=== PATIENT | female | born 1995 | race Caucasian/White ===

== ENCOUNTER 2019-11-22 21:53 | Emergency (ER) | payer SELFPAY ==
[2019-11-22 22:01] VITALS: BP 127/78; PULSE 90; RESP 17; TEMP 36.4; O2SAT 98; BMI 29.0
--- NOTE | 2019-11-22 22:33 | US_ITS ---
WS: [id number] Complete ABDOMINAL ULTRASOUND HISTORY: Abdominal Pain COMPARISON: None available. Liver: 12.6 cm in length. Liver is normal size and echogenicity with no mass or intrahepatic dilatati on. Gallbladder: Normally distended gallbladder with numerous mobile stones in the lumen. No pericholecys tic fluid or gallbladder wall thickening. Gallbladder wall thickness: 0.3 cm. Pancreas: Normal size and echogenicity. CBD: 0.4 cm. Right kidney: 10.5 cm x 4.9 cm x 4.5 cm. No mass, cortical thickening or hydronephrosis. Left kidney: 11.1 cm x 5.1 cm x 5.4 cm. No mass, cortical thickening or hydronephrosis. Spleen: Normal size and echogenicity. Abdominal aorta and IVC are within normal limits. No ascites. US/US abdomen complete* [id number] IMPRESSION: 1. Cholelithiasis with gallbladder wall thickness top normal. No pericholecyst ic fluid. 2. No biliary obstruction.
--- NOTE | 2019-11-22 22:44 | ED_ITS ---
HPI - Abdominal Pain General: Chief Complaint: Abdominal Pain Stated Complaint: upper abd pain Time Seen by Provider: 11/22/19 22:29 History of Present Illness: HPI narrative: Tereza is a 24-year-old female who comes in complaining of right upper quadrant pain for the past 2 hours. She has associated nausea and vomiting with this. Pain does not radiate. It describes a sharp stabbing pain. She is not had anything similar in the past or recently. Earlier in the day the patient had lower abdominal pain when she urinated and was seen at urgent care and diagnosed with a UTI. She denies any fevers, chills, flank pain or lower abdominal pain at the present time. Associated Symptoms: Reports nausea and vomiting; Denies chills, coffee ground emesis, constipation, GI cramping, diarrhea, dysuria, fever(s), hematochezia, hematuria, hematemesis, melena and syncope Review of Systems General: Reports: other (negative unless marked) Const: Denies: fever, chills, body aches, fatigue, malaise or diaphoresis Eyes: Denies: change in vision or blurry vision ENMT: Denies: throat pain, painful swallowing, hoarseness, ear pain, ear discharge, Change in hearing or nasal discharge Card: Denies: chest pain, palpitations, irregular heart rhythm, syncope, pre-syncope, shortness of breath on exertion or shortness of breath when lying down Resp: Denies: shortness of breath, productive cough, non-productive cough, wheezing, coughing up blood or chest congestion GI: Reports: abdominal pain, nausea and vomiting; Denies: vomiting blood, coffee grounds in vomit, diarrhea, constipation, cramping, blood in stool or black tarry stool : Denies: flank pain, painful urination, urinary frequency, urinary urgency, decreased urine ouput, urinary incontinence or blood in urine Musc: Denies: neck pain, back pain, extremity pain, extremity swelling, joint pain, joint swelling, joint warmth or joint stiffness Skin/Breast: Denies: rash, skin tenderness or yellow skin Neuro: Denies: headache, numbness in extremities, weakness in extremities, changes in sensation, lack of coordination, difficulty walking, dizziness, vertigo or confusion Endo: Denies: excessive thirst, tired all the time, cold intolerance, excessive sweating, flushing or hot flashes Hiram/Lymph: Denies: easy bruising, easy bleeding, petechiae or enlarged lymph nodes All/Imm: Denies: hives, throat swelling, tongue swelling, facial swelling or acute wheezing PFSH ED PFSH: Medical History No pertinent past medical history Surgical History No history of previous surgery Social History Smoking and tobacco status: current every day smoker Physical Exam Const: COMMON NORMALS: no apparent distress, oriented x3, no limitations, healthy appearing and well nourished EXAM LIMITATIONS: no altered mental status GENERAL APPEARANCE: cooperative, well kempt and well developed ORIENTATION/CONSCIOUSNESS: Yes awake HENMT: COMMON NORMALS: normocephalic, head/scalp atraumatic, hearing grossly normal bilaterally, external ears normal, EAC's normal, external nose normal and moist oral mucous membranes HEAD & SCALP: normal to inspection, normocephalic and atraumatic FACE & SINUS: normal facial exam and face symmetric NOSE: external nose normal and nares normal EXTERNAL EAR: Yes external ears normal EXTERNAL AUDITORY CANAL: EAC's normal MOUTH: oral and palatal mucosa normal and tongue normal Eye: COMMON NORMALS: PERRL, EOMs intact bilaterally, conjunctivae normal and no scleral icterus GENERAL EYE: normal appearance of both eyes and normal light reflex CONJUNCTIVA: Yes conjunctivae normal SCLERA: sclerae normal CORNEA: Yes corneas normal PUPIL: Yes PERRL DIRECT OPHTHALMOSCOPY: Yes normal light reflex Neck/C-Spine: COMMON NORMALS: full ROM, no lymphadenopathy, supple, no meningeal signs and no JVD GENERAL: Yes normal visual inspection and Yes trachea midline CERVICAL SPINE: Yes cervical ROM normal Chest: COMMONS NORMALS: inspection of chest normal and palpation of chest normal Resp: COMMON NORMALS: normal respiratory effort, no retractions, no use of accessory muscles and clear to auscultation bilaterally EFFORT & INSPECTION: Yes able to speak in complete sentences AUSCULTATION: clear to auscultation bilaterally Cardio: COMMON NORMALS: no JVD, regular rate, regular rhythm, S1 normal heart sound, S2 normal heart sound, no gallops, no clicks, no murmurs and no rub JUGULAR VENOUS DISTENTION: no JVD RATE: regular rate RHYTHM: regular rhythm HEART SOUNDS: S1 normal and S2 normal GI: COMMON NORMALS: soft to palpation, no hepatosplenomegaly and no masses PALPATION: Yes soft, Yes tender Details: RUQ and Yes no hepatosplenomegaly : COMMON NORMALS: Yes no CVA tenderness BLADDER/KIDNEY EXAM: Yes no CVA tenderness Back/Pelvis: COMMON NORMALS: no CVA tenderness, thoracic and lumbar spine normal to inspection, no thoracic nor lumbar tenderness and thoraco-lumbar ROM normal Extremity: COMMON NORMALS: normal to inspection, full ROM, normal capillary refill, no joint enlargement, no clubbing, cyanosis or edema and no calf tenderness Neuro: COMMON NORMALS: oriented x3, CN's II-XII intact bilaterally, moves all extremities, no focal motor deficits and no sensory deficits noted MENINGEAL SIGNS: Yes no meningeal signs Psych: COMMON NORMALS: mental status grossly normal, thought process normal, cooperative, affect normal, speech normal and activity/motor behavior normal APPEARANCE: Yes well kempt SPEECH: Yes normal speech THOUGHT PROCESS: normal thought process Skin: COMMON NORMALS: no rashes or lesions noted, skin turgor normal, no ja undice, no petechiae and no mottling GENERAL SKIN EXAM: no rashes or lesions noted and turgor normal Course Vital Signs: Vital signs: Vital Signs Temperature 97.5 F L 11/22/19 22:01 Pulse Rate 84 11/23/19 01:20 Respiratory Rate 18 11/23/19 01:20 Blood Pressure 113/61 11/23/19 01:20 Pulse Oximetry 98 11/23/19 01:20 MDM - Abdominal Pain MDM Narrative: Medical decision making narrative: Tereza is a nice 24-year-old female who comes in complaining of right upper quadrant abdominal pain. Her pain subsided on its own here before receiving pain medication. She is overall feeling much better. She would like referred to a surgeon she understands this may recur. She otherwise denies having any complaints or concerns at this time. Lab Data: Attestation: I reviewed the patient's lab results. Labs: Lab Results 11/22/19 11/22/19 11/22/19 Range/Units 22:24 23:21 23:21 WBC 13.2 H (4.0-10.0) 10^3/ uL RBC 4.05 L (4.1-5.3) 10^6/u L Hgb 12.2 (11.5-15.3) g/dL Hct 36.4 L (37.0-47.0) % MCV 89.9 (81-99) fL MCH 30.1 (28.0-34.0) pg MCHC 33.5 (30.0-36.0) g/dL RDW 11.9 L (12.1-15.1) % Plt Count 233 (130-400) 10^3/c mm MPV 10.8 H (7.4-10.4) fL Neut % (Auto) 67.4 % Lymph % (Auto) 24.3 % [place] % (Auto) 6.1 % Eos % (Auto) 1.4 % Baso % (Auto) 0.4 % Neut # (Auto) 8.9 H (1.8-7.7) 10^3/u L Lymph # (Auto) 3.2 (0.8-4.8) 10^3/u L [place] # (Auto) 0.8 (0.2-0.9) 10^3/u L Eos # (Auto) 0.2 (0.0-0.8) 10^3/u L Baso # (Auto) 0.1 (0.0-0.1) 10^3/u L Nucleated RBC % (a uto) 0 % Nucleated RBCs # 0.0 /100WBC Sodium 136 (136-145) mmol/L Potassium 3.4 L (3.5-5.1) mmol/L Chloride 101 (98-107) mmol/L Carbon Dioxide 26 (22-29) mmol/L Anion Gap 12.4 (5-19) BUN 8 (6-20) mg/dL Creatinine 0.7 (0.5-0.9) mg/dL GFR Calculation 103.7 (90-130) mL/min Glucose 99 (65-115) mg/dL Calculated Osmolal ity 278 L (285-295) mOsm/k g Calcium 9.3 (8.5-10.5) mg/dL Magnesium (1.7-2.3) mg/dL Total Bilirubin 0.2 (0.15-1.2) mg/dL AST 11 (0-32) U/L ALT 6 (0-33) U/L Alkaline Phosphata se 69 (35-105) IU/L Total Protein 7.1 (6.6-8.7) g/dL Albumin 4.3 (3.5-5.2) g/dL Globulin 2.8 (1.3-4.6) g/dL Lipase 24 (13-60) U/L HCG, Qual (Negative) Urine Color Yellow (Yellow) Urine Appearance Clear (CLEAR) Urine pH 6 (5-7) Ur Specific Gravit y 1.020 (1.005-1.030) Urine Protein Neg (Negative) Urine Glucose (UA) Norm (Normal) Urine Ketones Negative (Negative) Urine Blood Neg (Negative) Urine Nitrate Negative (Negative) Urine Bilirubin Neg (NEGATIVE) Urine Urobilinogen Norm (Negative) mg/dL Ur Leukocyte Brigette ase Negative (Negative) Urine RBC 0-4 H (0-2) /hpf Urine WBC 0-4 H (0-5) /hpf Ur Squamous Epith Cells 0-4 H (0-5) Urine Bacteria 1+ H (NONE) 11/22/19 11/22/19 Range/Units 23:21 23:21 WBC (4.0-10.0) 10^3/ uL RBC (4.1-5.3) 10^6/u L Hgb (11.5-15.3) g/dL Hct (37.0-47.0) % MCV (81-99) fL MCH (28.0-34.0) pg MCHC (30.0-36.0) g/dL RDW (12.1-15.1) % Plt Count (130-400) 10^3/c mm MPV (7.4-10.4) fL Neut % (Auto) % Lymph % (Auto) % [place] % (Auto) % Eos % (Auto) % Baso % (Auto) % Neut # (Auto) (1.8-7.7) 10^3/u L Lymph # (Auto) (0.8-4.8) 10^3/u L [place] # (Auto) (0.2-0.9) 10^3/u L Eos # (Auto) (0.0-0.8) 10^3/u L Baso # (Auto) (0.0-0.1) 10^3/u L Nucleated RBC % (a uto) % Nucleated RBCs # /100WBC Sodium (136-145) mmol/L Potassium (3.5-5.1) mmol/L Chloride (98-107) mmol/L Carbon Dioxide (22-29) mmol/L Anion Gap (5-19) BUN (6-20) mg/dL Creatinine (0.5-0.9) mg/dL GFR Calculation (90-130) mL/min Glucose (65-115) mg/dL Calculated Osmolal ity (285-295) mOsm/k g Calcium (8.5-10.5) mg/dL Magnesium 2.1 (1.7-2.3) mg/dL Total Bilirubin (0.15-1.2) mg/dL AST (0-32) U/L ALT (0-33) U/L Alkaline Phosphata se (35-105) IU/L Total Protein (6.6-8.7) g/dL Albumin (3.5-5.2) g/dL Globulin (1.3-4.6) g/dL Lipase (13-60) U/L HCG, Qual Negative (Negative) Urine Color (Yellow) Urine Appearance (CLEAR) Urine pH (5-7) Ur Specific Gravit y (1.005-1.030) Urine Protein (Negative) Urine Glucose (UA) (Normal) Urine Ketones (Negative) Urine Blood (Negative) Urine Nitrate (Negative) Urine Bilirubin (NEGATIVE) Urine Urobilinogen (Negative) mg/dL Ur Leukocyte Brigette ase (Negative) Urine RBC (0-2) /hpf Urine WBC (0-5) /hpf Ur Squamous Epith Cells (0-5) Urine Bacteria (NONE) Discharge Plan Discharge Patient Disposition: Home, Self-Care Clinical Impression: Biliary colic Condition: Stable Prescriptions: No Action sulfamethoxazole-trimethoprim [Bactrim DS] 800-160 mg tablet 1 tab PO BID Qty: 6 RF: 0 Discharge Orders: Discharge Order (Routine); Ordered 11/22/19 Ordered By: Gayla Fishman Referrals: Matthew Samuels MD [Primary Care Provider] - Carlos Robins MD [Physician] - 1-3 days Discharge Diet: Advance as tolerated Discharge Activity: Increase activity as tolerated Patient Instructions: Biliary Colic (ED), Abdominal Pain (ED) Activity Restrictions/Additional Instructions: Please return to the ER immediately for any of the signs or symptoms listed on your discharge instruction sheets, worsening/changing of your symptoms, you are not getting better as quickly as expected, or for ANY other cause or concerns. Discharge Date/Time: 11/23/19 01:20 Coding Level of Care Code ED Construction Carpenter for Shalini Fwd Exam Comprehensive
[2019-11-22 22:47] LABS: Bacteria Urine 1+; Bilirubin Urine Neg (NEGATIVE); Blood Urine Neg (Negative); Glucose Urine UA Norm (Normal); Ketones Urine Negative (Negative); Leukocyte Esterase Urine Negative (Negative); Nitrate Urine Negative (Negative); Protein Urine Neg (Negative); RBC Urine 0-4 /hpf (0-2); Squamous Epithelial Cell Urine 0-4 (0-5); Urine Appearance Clear (CLEAR); Urine Color Yellow (Yellow); Urobilinogen Urine Norm (Negative); WBC Urine 0-4 /hpf (0-5); pH Urine 6 (5-7)
[2019-11-22] MEDS: sodium chloride 0.9% 1,000 ML 999 ML IV (23:12)
[2019-11-22] MEDS: ondansetron 2 mg/ML SDV 2 mL 4 MG IVP (23:18)
[2019-11-22 23:19] VITALS: RESP 18; O2SAT 98
[2019-11-22] MEDS: morphine 4 mg/mL SDV 1 mL IVP (23:19)
[2019-11-22 23:29] LABS: Basophils # 0.1 10^3/uL (0.0-0.1); Basophils % 0.4 %; Eosinophils # 0.2 10^3/uL (0.0-0.8); Eosinophils % 1.4 %; Hematocrit 36.4 % (37.0-47.0); Hemoglobin 12.2 g/dL (11.5-15.3); Lymphocytes # 3.2 10^3/uL (0.8-4.8); Lymphocytes % 24.3 %; Mean Corpuscular HGB Conc 33.5 g/dL (30.0-36.0); Mean Corpuscular Hemoglobin 30.1 pg (28.0-34.0); Mean Corpuscular Volume 89.9 fL (81-99); Mean Platelet Volume 10.8 fL (7.4-10.4); Monocytes # 0.8 10^3/uL (0.2-0.9); Monocytes % 6.1 %; Neutrophils # 8.9 10^3/uL (1.8-7.7); Neutrophils % 67.4 %; Nucleated Red Blood Cells % 0 %; Platelet Count 233 10^3/cmm (130-400); Red Blood Count 4.05 10^6/uL (4.1-5.3); Red Cell Distribution Width 11.9 % (12.1-15.1); White Blood Count 13.2 10^3/uL (4.0-10.0)
[2019-11-22 23:43] LABS: Alanine Aminotransferase 6 U/L (0-33); Albumin Level 4.3 g/dL (3.5-5.2); Alkaline Phosphatase 69 IU/L (35-105); Anion Gap 12.4 (5-19); Aspartate Amino Transferase 11 U/L (0-32); Blood Urea Nitrogen 8 mg/dL (6-20); Calcium 9.3 mg/dL (8.5-10.5); Carbon Dioxide 26 mmol/L (22-29); Chloride 101 mmol/L (98-107); Creatinine Clr Calc Pharmacy 134.6498; Globulin 2.8 g/dL (1.3-4.6); Glomerular Filtration Rate 103.7 mL/min (90-130); Glucose 99 mg/dL (65-115); Lipase 24 U/L (13-60); Osmolality Calculated 278 mOsm/kg (285-295); Potassium 3.4 mmol/L (3.5-5.1); Sodium 136 mmol/L (136-145); Total Bilirubin 0.2 mg/dL (0.15-1.2); Total Protein 7.1 g/dL (6.6-8.7)
[2019-11-22 23:45] LABS: HCG, Serum Qual Negative (Negative)
[2019-11-23 01:08] LABS: Magnesium 2.1 mg/dL (1.7-2.3)
[2019-11-23 01:20] VITALS: BP 113/61; PULSE 84; RESP 18; O2SAT 98
--- NOTE | 2019-11-23 10:59 | DCPLANNER ---
Addendum entered by Jennifer Calzada 11/23/19 13:28: surgical territory manager did call patient again, spoke with patient, gave her the appointment information. surgical territory manager will also mail patient the financial planning adviser application for the hospital. Original Note: surgical territory manager had message to schedule a follow up appointment for patient with general surgery. surgical territory manager called [facility], spoke with Regina. surgical territory manager gave clinic patients information, a follow up appointment was scheduled for Wednesday, November 27, 2019 at 2:[address] Robins. surgical territory manager called patient with appointment information, unable to speak with patient at this time, a voicemail was left for patient to return case consultant phone call.
--- NOTE | 2019-12-07 16:01 | DCPLANNER ---
Patient did attend appointment scheduled for 11.27.19 with [facility].
== END 2019-11-23 01:20 | disposition home or self-care (01) ==
PROVIDERS: Emergency Provider Emergency Medicine; Family Provider Family Medicine; PCP Family Medicine
DX: K80.50 Calculus of bile duct without cholangitis or cholecystitis without obstruction (principal); F17.210 Nicotine dependence, cigarettes, uncomplicated
CPT/HCPCS: 12345; 76700; 80053; 81000; 81001; 83690; 83735; 84703; 85025; 96361; 96374; 96375; 99282; 99283; J2270; J2405; J7030

== ENCOUNTER 2019-11-29 11:53 | Day surgery (SDC) | payer SELFPAY ==
[2019-11-28 12:51] VITALS: BMI 28.7
[2019-11-29] VITALS (8 sets, daily range): BP systolic 123–142; BP diastolic 70–79; PULSE 61–86; RESP 13–20; TEMP 36.9–37.6; O2SAT 96–99
--- NOTE | 2019-11-29 12:13 | W.PM.OPSUD ---
Surgery/Procedure H&P Update DATE OF PROCEDURE: November 29, 2019 DATE H&P PERFORMED: 11/27/19 H&P UPDATE INFORMATION: I have reviewed H&P completed within last 30 days, I have examined patient prior to procedure and No changes to prior documentation PLANNED PROCEDURE: Operation Date: 11/29/19 13:30 Proposed Procedures p Laparoscopic Cholecystectomy 45528/K80.20(Not Applicable) - Carlos Robins MD
--- NOTE | 2019-11-29 13:02 | ANES.PREANE2 ---
Pre-Anesthetic Assessment Pre-Anesthetic Assessment: Height/Weight: Height 1.68 m Weight 80.739 kg Temp Pulse Resp BP Pulse Ox 98.5 F 75 18 131/73 99 11/29/19 12:25 11/29/19 12:25 11/29/19 12:25 11/29/19 12:25 11/29/19 12:25 Preop Diagnosis: Cholelithiasis Proposed Procedure: Operation Date: 11/29/19 13:30 Proposed Procedures p Laparoscopic Cholecystectomy 52060/K80.20(Not Applicable) - Carlos Robins MD Familial anesthetic complications: None Was Beta Isabell taken within 24 hours: N/A Last intake: Intake Last Liquid Date 11/28/19 Last Liquid Time 20:30 Last Solid Date 11/28/19 Last Solid Time 20:00 Social: Social History: Tobacco and No alcohol Packs per day: 1 ppd Exam: Pre-Anes Outpt Exam: alert, oriented x 3, clear to auscultation bilaterally and regular rate & rhythm Airway: Cervical ROM: WNL MP: 2 Additional comments: no teeth on top - chipped teeth on bottom Pulmonary: Pulmonary: None reported CV/HEM: CV/HEM: None reported : : None reported Comments: uti Hepatic: Hepatic: None reported GI: GI: None reported Metabolic: Metabolic: None reported Musc/skel: Musc/skel: None reported Neuropsych: Neuropsych: None reported Anesthetic Plan: ASA status: 1 Anesthesia: General Risk of > 500 ml blood loss (7ml/kg in children): No PFSH Anesthesia PFSH: Medical History (Updated 11/29/19 @ 12:34 by Carlos Robins MD) No pertinent past medical history Surgical History (Updated 11/29/19 @ 12:34 by Carlos Robins MD) No history of previous surgery Status post laparoscopic cholecystectomy (11/29/19) Social History Smoking and tobacco status: current every day smoker Data Anesthesia Cardiac Studies: No Data to Display
[2019-11-29 13:34] LABS: OR HCG Qualitative Urine Negative (Negative)
[2019-11-29] MEDS: sodium chloride 0.9% 1,000 ML 30 ML IV (14:23)
--- NOTE | 2019-11-29 15:08 | P.OP_ITS ---
Operative Report Date of procedure: November 29, 2019 Pre-op Diagnosis: Cholelithiasis Post-op diagnosis: same Procedure Done: Laparoscopic cholecystectomy Specimens removed/disposition: Gallbladder Surgeon: Carlos Robins Anesthesia: General Condition: stable Disposition: PACU Procedure: The patient was taken to the operating room and was intubated under general anesthesia. After the antibiotic had been administered, the abdomen was prepped and draped in a sterile manner. Using a #15 blade, a 1 centimeter infraumbilical curvilinear incision was made and using an open Sergey technique the peritoneal cavity was entered. A 10 millimeter port was placed and 15 millimeters of pneumoperitoneum was created. A 10 millimeter, 30 degrees scope was then introduced. Three 5 millimeter ports were placed in the epigastric, midclavicular and the anterior axillary line two fingerbreadths below the costal margin on the right side under the direct visualization. Ratcheted forceps were introduced into the lateral most port and was used to retract the fundus of the gallbladder cephalad and using forceps the infundibulum of the gallbladder was retracted laterally. Using L-hook cautery the peritoneum overlying the Calot's triangle was opened medially and laterally until the cystic duct and the cystic artery were skeletonized. Dissection was carried along the body of the gallbladder and after ensuring critical view of safety, 4 clips applied on the cystic duct and 3 clips applied on the cystic artery and cut leaving, 3 clips on the remaining portion of the duct and 2 clips on the remaining portion of the artery. The rest of the gallbladder was dissected off the liver using L-hook cautery. There was no bleeding or bile leaking noted from the gallbladder fossa and the clips appeared to be in place. An EndoCatch bag was introduced to remov e the gallbladder. All the ports were removed under direct visualization and there was no bleeding noted from the port sites. The fascia of the umbilicus was closed using [id number] 0 Vicryl sutures and the subcutaneous tissue was approximated using 3-0 Vicryl sutures. The skin at all four ports were closed using 4-0 Monocryl and Dermabond. A total of 10 millimeters of 0.5% Marcaine was infiltrated around the port sites. The patient was stable throughout the procedure.
[2019-11-29] MEDS: fentaNYL 50 mcg/mL INJ 2mL 100 MCG IVP (15:23)
[2019-11-29] MEDS: HYDROcodone-acetaminophen 5-325 mg Tablet 1 TAB PO (16:06)
== END 2019-11-29 16:40 | disposition home or self-care (01) ==
PROVIDERS: Anesthesiology; Family Provider Family Medicine; PCP Family Medicine; Visit Provider Surgery
PROC: 0FT44ZZ Resection of Gallbladder, Percutaneous Endoscopic Approach (ICD-10-PCS; CPT 47562; principal; 2019-11-29 13:30)
DX: K80.10 Calculus of gallbladder with chronic cholecystitis without obstruction (principal); F17.210 Nicotine dependence, cigarettes, uncomplicated
CPT/HCPCS: 47562; 12345; 84703; 88304; J0131; J0690; J2001; J2250; J2405; J2704; J3010; J3490; J7030

== ENCOUNTER → 2020-07-15 10:21 | Outpatient (BNVA) | payer MEDICAID, SELFPAY | PROVIDERS: Family Provider Family Medicine; PCP Family Medicine; Visit Provider Emergency Medicine | DX: N99.89 Other postprocedural complications and disorders of genitourinary system (principal); N39.0 Urinary tract infection, site not specified | CPT/HCPCS: 81000 ==

== ENCOUNTER → 2021-12-31 09:42 | Outpatient (BNVA) | payer MEDICAID, SELFPAY | PROVIDERS: Family Provider Family Medicine; PCP Family Medicine; Visit Provider Obstetrics & Gynecology | DX: R87.612 Low grade squamous intraepithelial lesion on cytologic smear of cervix (LGSIL) (principal); R87.619 Unspecified abnormal cytological findings in specimens from cervix uteri | CPT/HCPCS: 81025; 88305 ==

== ENCOUNTER → 2022-08-05 11:13 | Outpatient (BNVA) | payer MEDICAID, SELFPAY | PROVIDERS: Family Provider Family Medicine; PCP Family Medicine; Visit Provider Obstetrics & Gynecology | DX: Z00.00 Encounter for general adult medical examination without abnormal findings (principal) | CPT/HCPCS: 84702 ==

== ENCOUNTER 2022-09-08 07:03 | Outpatient (CLI) | payer MEDICAID, SELFPAY ==
--- NOTE | 2022-09-08 | US_ITS ---
WS: [id number] EARLY OBSTETRICAL ULTRASOUND (<14 WEEKS). HISTORY: UNSURE OF LMP COMPARISON: None available. Single intrauterine gestational sac is identified. Cardiac activity at 164 BPM. Delight-rump length ronna sures 3.5 cm which corresponds to a gestation of 10w3d. Normal-appearing yolk sac and amnion demonstr ated. No subchorionic hemorrhage. No free fluid. Normal size ovaries with no mass. US/US OB <= 14 weeks fetus [id number] IMPRESSION: 1. Single intrauterine gestation of 10 weeks 3 days with an EDC of 04/03/2023. 2. Normal cardiac activity.
== END 2022-09-08 07:04 | disposition home or self-care (01) ==
LOC: RAD 07:05
PROVIDERS: PCP Family Medicine; Visit Provider Family Medicine
DX: Z36.87 Encounter for antenatal screening for uncertain dates (principal); Z3A.10 10 weeks gestation of pregnancy
CPT/HCPCS: 76801

== ENCOUNTER 2023-03-20 00:23 | Inpatient (IN) | payer MEDICAID, SELFPAY ==
[2023-03-19] VITALS (9 sets, daily range): BP systolic 107–138; BP diastolic 70–82; PULSE 75–85; RESP 15; TEMP 36.1; BMI 36.1
[2023-03-19 23:43] LABS: Nitrazine Paper, PH Negative
[2023-03-20] VITALS (27 sets, daily range): BP systolic 113–160; BP diastolic 57–101; PULSE 72–122; RESP 16–17; TEMP 36.8–37.1; O2SAT 96–98
[2023-03-20] MEDS: lactated ringers 1,000 ML 999 ML IV (00:46)
[2023-03-20 01:03] LABS: Basophils % 0.1 %; Eosinophils # 0.1 10^3/uL (0.0-0.8); Eosinophils % 0.5 %; Hematocrit 33.6 % (36-47); Lymphocytes # 2.2 10^3/uL (0.8-4.8); Lymphocytes % 16.1 %; Mean Corpuscular HGB Conc 33.9 g/dL (30-55); Mean Corpuscular Hemoglobin 29.8 pg (27-33); Mean Corpuscular Volume 87.7 fl (85-98); Mean Platelet Volume 11.5 fL (7.4-10.4); Monocytes # 0.9 10^3/uL (0.2-0.9); Monocytes % 6.3 %; Neutrophils # 10.46 10^3/uL (1.8-7.7); Neutrophils % 76.7 %; Nucleated Red Blood Cells % 0 %; Platelet Count 190 10^3/cmm (157-399); Red Blood Count 3.83 10^6/uL (3.85-5.65); Red Cell Distribution Width 12.4 % (12.1-15.1); White Blood Count 13.64 10^3/uL (3.29-11.43)
--- NOTE | 2023-03-20 01:46 | P.ANESASSM_ITS ---
Pre-Anesthetic Assessment Height/Weight: Height 1.7 m Weight 104.78 kg Temp Pulse Resp BP O2 Del Method 97.0 F L 78 15 131/80 Room Air 03/19/23 21:47 03/20/23 01:26 03/19/23 21:49 03/20/23 01:26 03/19/23 23:13 Preop Diagnosis: labor epidural Familial anesthetic complications: none Was Beta Isabell taken within 24 hours: N/A Was Clonidine taken within 24 hours: N/A Last Intake: 20:30 Social Tobacco and No alcohol 1/2ppd pack(s) per day 10 pack years Exam alert, oriented x 3, clear to auscultation bilaterally and regular rate & rhythm Airway Submandibular: within normal limits Cervical ROM: within normal limits Mallampati: Class II Dentition: false (upper) Pulmonary None reported CV/HEM None reported None reported Hepatic None reported GI Gastroesophageal Reflux Disease (with ) Metabolic None reported Musc/skel Lower Back Pain (with ) Neuropsych Anxiety Anesthetic Plan ASA status: 2 Anesthesia: Regional (specify below) (epidural) Medications/Allergies Home Medications Medication Instructions Recorded Confirmed Last Taken Type anchgaxy-kph-Vj-FA 1 mg 1 tab PO DAILY 03/19/23 03/19/23 03/19/23 History tablet Allergies Allergy/AdvReac Type Severity Reaction Status Date / Time No Known Allergies Allergy Verified 03/19/23 23:04 Current Medications Generic Name Dose Route Start Last Admin Trade Name Freq PRN Reason Stop Dose Admin Lactated Ringer's 1,000 mls @ 999 mls/hr 03/20/23 00:41 03/20/23 00:46 Lactated Ringers IV 999 mls/hr .Q1H1M PRN Administration See label comments [facility] Medical History No pertinent past medical history Surgical History (Updated 11/26/21 @ 11:18 by Ibeth Hall MD) History of cholecystectomy No history of previous surgery Status post laparoscopic cholecystectomy (11/29/19) Family History Other Diabetes Denies family history of Colon cancer Ovarian cancer Heart disease Hypercholesteremia Breast cancer Hypertension Uterine cancer Thyroid disease Stroke Social History Smoking and tobacco status: current every day smoker Substance/Drug Use: never Female Reproductive History : 3 Data Anesthesia 03/20/23 00:30 Short CBC 03/20/23 Range/Units 00:30 WBC 13.64 H (3.29-11.43) 10^3/uL Hgb 11.40 (11.27-16.99) g/dL Hct 33.6 L (36-47) % MCV 87.7 (85-98) fl Plt Count 190 (157-399) 10^3/cmm Neut % (Auto) 76.7 % Neut # (Auto) 10.46 H (1.8-7.7) 10^3/uL Cardiac Studies: No Data to Display
--- NOTE | 2023-03-20 02:18 | ANES.PROC ---
Anesthesia Procedures Procedure/Date: 03/20/23 Epidural: Time Out Performed: Yes Consents Signed: Procedure Consent and NPO Consent Consent: requested by attending/covering physician, from patient, risks and benefits reviewed and patient agrees to proceed Lumbar Level: L3-L4 Epidural position: sitting Epidural procedure: sterile prep of area (betadine), 1% lidocaine to numb the area (3ml), 18 g needle, negative for paresthesia passed, neg for paresthesia, test dose given, 1.5% xylocaine 1:200k epi (3ml/2ml), 0.2% Ropivacaine bolus ml (5ml), placed PCEA, no systemic response, sterile dressing applied, L.U.D. no apparent complications and 0.2% Ropiavacaine @ mls/hr (13ml/hr)
--- NOTE | 2023-03-20 04:21 | PM.OPHPUD ---
Labor & Delivery H&P Update Date of Procedure: March 20, 2023 Date H&P Performed: 03/18/23 Changes to previous documentation: The patient is now dilated to 2 cm and 80% effaced. Admission Diagnosis: 28-year-old 3 para 2-0-0-2 at 38 weeks estimated gestational age presenting in active labor Preop diagnosis: labor Planned procedure: Spontaneous vaginal delivery Other information: The patient is a 28-year-old female who has had a relatively unremarkable . She arrived to the hospital complaining contractions. After rechecking her 2 hours later she was noted to have cervical change. As result she was admitted with anticipated spontaneous vaginal delivery. Her had been relatively unremarkable. There were no complications. Her blood type was B-. Her antibody screen was negative. She was GBS negative. She is rubella nonimmune. The remainder of her infectious disease profile was within normal limits. She passed her glucose screen. Her drug screen was negative. Related Problem List Diagnoses (1) 38 weeks gestation of : I anticipate a routine labor process and I am hopeful we can have a spontaneous vaginal delivery. (2) Active labor: A&P Assessment and plan (1) 38 weeks gestation of : Status: Acute (2) Active labor: Status: Acute
[2023-03-20] MEDS: ibuprofen 800 mg tablet PO ×2 (10:17→21:00)
[2023-03-20] MEDS: docusate sodium 100 mg Capsule PO ×2 (10:18→21:00)
[2023-03-20] MEDS: prenatal vitamin Capsule 1 CAP PO (10:18)
[2023-03-20 15:10] LABS: Hematocrit 30.2 % (36-47); Mean Corpuscular HGB Conc 34.1 g/dL (30-55); Mean Corpuscular Hemoglobin 30.4 pg (27-33); Mean Corpuscular Volume 89.1 fl (85-98); Mean Platelet Volume 11.8 fL (7.4-10.4); Platelet Count 167 10^3/cmm (157-399); Red Blood Count 3.39 10^6/uL (3.85-5.65); Red Cell Distribution Width 12.4 % (12.1-15.1); White Blood Count 13.31 10^3/uL (3.29-11.43)
[2023-03-21 04:15] VITALS: BP 119/76; PULSE 75; RESP 16; TEMP 36.4; O2SAT 98
--- NOTE | 2023-03-21 08:58 | ANE.PACU2 ---
Inpatient post-anesthesia follow up: Airway intact: Yes Vital signs: Temperature 97.9 F Pulse Rate 88 Respiratory Rate 16 Blood Pressure 133/83 Pulse Oximetry 98 Oxygen Delivery Me thod Room Air Oxygen Flow Rate Fraction of Inspir ed Oxygen Hydration adequate: Yes Nausea and vomiting: No Pain level: 1 Mental status: Baseline
[2023-03-21 10:00] VITALS: BP 133/83; PULSE 88; TEMP 36.6; O2SAT 98
[2023-03-21] MEDS: ibuprofen 800 mg tablet PO (10:04)
[2023-03-21] MEDS: docusate sodium 100 mg Capsule PO (10:05)
[2023-03-21] MEDS: prenatal vitamin Capsule 1 CAP PO (10:05)
--- NOTE | 2023-03-21 10:05 | PM.OBGYDC ---
Discharge Providers CONTROLLER OPERATIONS AND HR MANAGER Date of Admission: 03/20/23 00:23 Date of Discharge: 03/26/23 Attending Provider at Admission: Amilcar Hale MD Attending Provider at Discharge: Amilcar Hale MD Primary Care Provider: Amilcar Hale MD Diagnoses at Discharge Discharge Diagnosis (1) 38 weeks gestation of : Status: Resolved (2) Active labor: Status: Resolved Reason for Visit Reason for Visit: possible ROM Hospital Course Hospital Course Patient presented to the hospital in active labor. She progressed to complete and had an unremarkable delivery of a healthy infant. Her course was also unremarkable. Her bleeding was within normal limits. Her pain was well controlled. She is breast-feeding well. Information Peripartum Data: Infant Delivery Method: Vaginal Physical Exam Narrative: The patient is alert. She appears comfortable. Her heart has a regular rate and rhythm with no murmurs appreciated. Lungs are clear to auscultation bilaterally. Her fundus is firm and below the umbilicus. History History History 2 Term 2 0 Miscarriages/Ectopic 0 Living Children 2 Discharge Data Studies Completed and Pending Laboratory Results WBC 13.31 10^3/uL (3.29-11.43) H 03/20/23 14:51 RBC 3.39 10^6/uL (3.85-5.65) L 03/20/23 14:51 Hgb 10.30 g/dL (11.27-16.99) L 03/20/23 14:51 Hct 30.2 % (36-47) L 03/20/23 14:51 MCV 89.1 fl (85-98) 03/20/23 14:51 MCH 30.4 pg (27-33) 03/20/23 14:51 MCHC 34.1 g/dL (30-55) 03/20/23 14:51 RDW 12.4 % (12.1-15.1) 03/20/23 14:51 Plt Count 167 10^3/cmm (157-399) 03/20/23 14:51 MPV 11.8 fL (7.4-10.4) H 03/20/23 14:51 Neut % (Auto) 76.7 % 03/20/23 00:30 Lymph % (Auto) 16.1 % 03/20/23 00:30 Treasure % (Auto) 6.3 % 03/20/23 00:30 Eos % (Auto) 0.5 % 03/20/23 00:30 Baso % (Auto) 0.1 % 03/20/23 00:30 Neut # (Auto) 10.46 10^3/uL (1.8-7.7) H 03/20/23 00:30 Lymph # (Auto) 2.2 10^3/uL (0.8-4.8) 03/20/23 00:30 Treasure # (Auto) 0.9 10^3/uL (0.2-0.9) 03/20/23 00:30 Eos # (Auto) 0.1 10^3/uL (0.0-0.8) 03/20/23 00:30 Baso # (Auto) 0.0 10^3/uL (0.0-0.1) 03/20/23 00:30 Nucleated RBC % (auto) 0 % 03/20/23 00:30 Nucleated RBCs # 0.0 /100WBC 03/20/23 00:30 Fluid pH (paper) Negative 03/19/23 22:04 Vitals Last Vital Signs Temp 97.6 F 03/21/23 04:15 Pulse 75 03/21/23 04:15 Resp 16 03/21/23 04:15 BP 119/76 03/21/23 04:15 Pulse Ox 98 03/21/23 04:15 O2 Del Method Room Air 03/21/23 04:15 Discharge Plan Discharge Patient Disposition: Home Condition: Stable Prescriptions: New ibuprofen 800 mg Tablet 800 mg PO TID Qty: 45 0RF Continued [id number] 1 mg Tablet 1 tab PO DAILY Discharge Orders: Discharge Order (Routine); Ordered 03/21/23 Ordered By: Amilcar Hale Referrals: Amilcar Hale MD [Primary Care Provider] - 6 Weeks Discharge Diet: Advance as tolerated Discharge Activity: Limit activity as instructed Patient Instructions: Depression (GEN), Bleeding (GEN), Opioid Safety (GEN), Preeclampsia and Eclampsia After Delivery (GEN), Hemorrhage (GEN), OB Discharge Report, OB Food/Drug Interaction Guide, OB Care at Home, Opioid Safety, OB Home Care, OB Vaginal Deliveries - [facility] Discharge Attestations CONTROLLER OPERATIONS AND HR MANAGER Time Spent in Discharge Care*: less than 30 min Coding Level of Care Code Acute Code for Chg Fwd Diagnoses 38 weeks gestation of Z3A.38 Active labor
[2023-03-21 12:00] VITALS: BP 133/83; PULSE 88; RESP 16; TEMP 36.6; O2SAT 98
--- NOTE | 2023-03-26 06:38 | PM.DELIVERY ---
Delivery Note: Date of delivery: March 26, 2023 Pre-delivery diagnoses: 3 para 2-0-0-2 at 38 weeks estimated gestational age presenting in active labor Post-delivery diagnoses: Status post spontaneous vaginal delivery Procedure: Spontaneous vaginal delivery Estimated blood loss (mL): 100 Pre-Delivery Course: The patient presented to the hospital with a complaint of contractions. After being in the hospital for couple of hours she was noted to make cervical change. She then progressed to complete without difficulty. Delivery: DELIVERY: The patient progressed to complete without difficulty. She delivered a male with a weight of 7 pounds 4 ounces with Apgars of 8, 9. The baby was delivered from the COLIN position. The baby's mouth and nose were suctioned at the site of the perineum. The baby was then completely delivered and placed on the mother's abdomen. The cord was then clamped and cut. There was no nuchal cord. There was no meconium. The placenta and 3 vessel cord were delivered intact shortly thereafter. The perineum and vaginal vault were carefully examined. No lacerations were noted. Both the mother and the baby were in stable condition. Post-Delivery Status: Good History History History 3 Term 2 0 Miscarriages/Ectopic 0 Living Children 2 A&P Assessment and plan (1) Status post vaginal delivery: I anticipate routine care Coding Level of Care Code Acute Code for Chg Fwd Diagnoses Status post vaginal delivery
== END 2023-03-21 11:35 | disposition home or self-care (01) | DRG 807 ==
LOC: OPOB 00:25 → OBGYN 00:25
PROVIDERS: Admitting Provider Family Medicine; PCP Family Medicine; Visit Provider Family Medicine
DX: O80 Encounter for full-term uncomplicated delivery (principal); Z37.0 Single live birth; Z3A.38 38 weeks gestation of pregnancy
CPT/HCPCS: 36415; 59025; 59409; 83986; 85025; 85027; 99211; J7120

== ENCOUNTER → 2024-02-07 08:56 | Outpatient (BNVA) | payer MEDICAID, SELFPAY | PROVIDERS: PCP Family Medicine; Visit Provider Obstetrics & Gynecology | DX: R10.2 Pelvic and perineal pain (principal) | CPT/HCPCS: 76830 ==

== ENCOUNTER 2024-10-24 09:16 | Day surgery (SDC) | payer MEDICAID, SELFPAY ==
[2024-10-24] VITALS (9 sets, daily range): BP systolic 114–126; BP diastolic 70–78; PULSE 64–79; RESP 16–18; TEMP 36.2–36.6; O2SAT 90–100; BMI 30.4
--- NOTE | 2024-10-24 05:35 | PM.OBGYHP ---
Providers/Chief Complaint Admitting Physician: Brady Love MD Primary SOUP MIXER: Brady Love MD Primary Care Provider: Amilcar Hale MD Chief Complaint: Z30.2 HPI SOUP MIXER History of Present Illness Tereza Olmos is a 29 year old female h/o x three wants permanent sterilization now scheduled for laparoscopic bilateral salpingectomy Medications/Allergies Home Medications ?Medication ?Instructions ?Recorded ?Confirmed ?Last Taken ?Type ibuprofen 800 mg tablet 800 mg PO TID #90 tabs 08/07/24 10/23/24 10/23/24 Rx etonogestrel 68 mg subdermal 68 mg subdermal PRN 10/13/24 10/23/24 Unknown History implant (Nexplanon) Allergies Allergy/AdvReac Type Severity Reaction Status Date / Time No Known Allergies Allergy Verified 10/13/24 09:14 PFSH SOUP MIXER PFSH: Surgical History History of cone biopsy of cervix History of cholecystectomy 11/29/19 Family History Other Diabetes Denies family history of Colon cancer Ovarian cancer Heart disease Hypercholesteremia Breast cancer Hypertension Uterine cancer Thyroid disease Stroke Social History Smoking and tobacco/nicotine status: current every day tobacco/nicotine user Substance/Drug Use: never Other Female Reproductive History: Hx Age of Menarche: 13 History History History 3 Term 3 0 Miscarriages/Ectopic 0 Living Children 3 Physical Exam Const: COMMON NORMALS: no acute distress, average body habitus, patient oriented x3, healthy appearing, alert and well nourished Resp: COMMON NORMALS: normal respiratory effort, No use of accessory muscles and clear to auscultation bilaterally Cardio: COMMON NORMALS: regular rate and regular rhythm GI: COMMON NORMALS: Normal to inspection, nondistended, normoactive bowel sounds present, Soft to palpation and non-tender Results Labs OB ([facility]): Hct 30.2 % (36-47) L 03/20/23 Hgb 10.30 g/dL (11.27-16.99) L 03/20/23 Plt Count 167 10^3/cmm (157-399) 03/20/23 A&P Assessment and plan (1) Sterilization consult: Request for sterilization Patient does not want reversible control Patient adamant re permanent sterilization Patient voices understanding of irreversibility of procedure Procedure and risks of laparoscopic bilateral partial salpingectomy explained risks include, but not limited to, infection; bleeding; injury to internal organs, such as bladder, bowel, blood vessels; anesthesia; blood transfusions Patient understands and wants to proceed PDMP PDMP Reviewed: Not Reviewed Attestations Medical Necessity Statement*: patient desires permanent sterilization, now for laparoscopic bilateral salpingectomy Coding Level of Care Code Acute Code for Chg Fwd Diagnoses Sterilization consult Z30.09
[2024-10-24 09:45] LABS: OR HCG Qualitative Urine Negative (Negative)
[2024-10-24] MEDS: sodium chloride 0.9% 1,000 ML 30 ML IV (10:13)
--- NOTE | 2024-10-24 10:45 | ANES.PREANE2 ---
Pre-Anesthetic Assessment Height/Weight: Height 1.7 m Weight 87.997 kg Temp Pulse Resp BP Pulse Ox O2 Del Method 98 F 75 18 123/74 99 Room Air 10/24/24 09:48 10/24/24 09:48 10/24/24 09:48 10/24/24 09:48 10/24/24 09:48 10/24/24 09:52 Preop Diagnosis: desires permanent sterilization Operation Date: 10/24/24 11:20 Proposed Procedures p Laparoscopic bilateral partial salpingectomy 75199, Z30.2(Bilateral) - Brady Love MD Familial anesthetic complications: None Was Beta Isabell taken within 24 hours: N/A Was Clonidine taken within 24 hours: N/A Last intake: Intake Last Liquid Date 10/23/24 Last Liquid Time 21:00 Last Solid Date 10/23/24 Last Solid Time 21:00 Social Tobacco and No alcohol vapes Exam alert, oriented x 3, clear to auscultation bilaterally and regular rate & rhythm Airway Mallampati: Class I Dentition: false Anesthetic Plan ASA status: 1 Anesthesia: General Risk of > 500 ml blood loss (7ml/kg in children): No Medications/Allergies Home Medications ?Medication ?Instructions ?Recorded ?Confirmed ?Last Taken ?Type ibuprofen 800 mg tablet 800 mg PO TID #90 tabs 08/07/24 10/23/24 10/23/24 Rx etonogestrel 68 mg subdermal 68 mg subdermal PRN 10/13/24 10/23/24 Unknown History implant (Nexplanon) Allergies Allergy/AdvReac Type Severity Reaction Status Date / Time No Known Allergies Allergy Verified 10/13/24 09:14 Current Medications Generic Name Dose Route Start Last Admin Trade Name Freq PRN Reason Stop Dose Admin Sodium Chloride 1,000 mls @ 30 mls/hr 10/24/24 09:30 10/24/24 10:13 Sodium Chloride 0.9% IV 10/25/24 09:29 30 mls/hr .Q24H MARBELLA Administration PFSH Anesthesia Surgical History History of cone biopsy of cervix History of cholecystectomy 11/29/19 Family History Other Diabetes Denies family history of Colon cancer Ovarian cancer Heart disease Hypercholesteremia Breast cancer Hypertension Uterine cancer Thyroid disease Stroke Social History Smoking and tobacco/nicotine status: current every day tobacco/nicotine user Substance/Drug Use: never Data Anesthesia Cardiac Studies: No Data to Display
--- NOTE | 2024-10-24 11:15 | W.PM.OPSUD ---
Surgery/Procedure H&P Update DATE OF PROCEDURE: October 24, 2024 DATE H&P PERFORMED: 10/24/24 H&P UPDATE INFORMATION: I have reviewed H&P completed within last 30 days, I have examined patient prior to procedure and No changes to prior documentation PREOP DIAGNOSIS: desires permanent sterilization PLANNED PROCEDURE: Operation Date: 10/24/24 11:20 Proposed Procedures p Laparoscopic bilateral partial salpingectomy 24886, Z30.2(Bilateral) - Brady Love MD
--- NOTE | 2024-10-24 11:35 | P.OP_ITS ---
Operative Report Date of procedure: October 24, 2024 Pre-op diagnosis: desires permanent sterilization Post-op diagnosis: same Post-op findings: normal uterus, tubes, and ovaries Procedure done: laparoscopic bilateral salpingectomy Specimens removed/disposition: bilateral fallopian tube segments Surgeon: Brady Love MD Anesthesia: General Estimated blood loss (mL): 5 Complications: none Findings: normal uterus, tubes, and ovaries Condition: stable Disposition: PACU Brief History: 29 y.o. desires permanent sterilization Procedure: Informed consent was obtained. The patient was taken to the OR and placed on the table. General endotracheal anesthesia was induced. The abdomen was then prepped and draped in the usual fashion. A 5 mm subumbilical skin incision was made. A 5 mm trocar with sheath was then inserted into the peritoneal cavity under direct visualization with the laparoscope. After confirming intraperitoneal position, pneumoperitoneum was a chieved. Two separate 5 mm incisions were made in the right and left mid- quadrants. 5 mm trocars with sheaths were then inserted into the peritoneal cavity under direct visualization with the laparoscope. The right fallopian tube was then identified to its fimbrial end. Starting at the fimbrial end, the mesosalpinx was then coagulated and cut using the Ligasure. The right fallopian tube was excised and removed via one of the ports. This was sent to pathology. There was no bleeding seen. Similarly, the left fallopian tube was identified to its fimbrial end. The left fallopian tube was excised and removed, sent to pathology. There was no bleeding. All instruments were then removed from the peritoneal cavity after the pneumoperitoneum was allowed to escape. The skin incisions were closed using 3- O chromic in subcuticular fashion. Dermabond was applied. The patient was then placed supine and awakened, taken the the PACU in good condition. Postop condition: stable EBL: 5 cc Complications: none Sponge, needles, and instruments counts correct x two
--- NOTE | 2024-10-24 13:30 | ANE.PACU2 ---
Inpatient post-anesthesia follow up: Airway intact: Yes Vital signs: Temperature 97.1 F Pulse Rate 72 Respiratory Rate 17 Blood Pressure 126/76 Pulse Oximetry 92 Oxygen Delivery Me thod Room Air Oxygen Flow Rate 8 Fraction of Inspir ed Oxygen Hydration adequate: Yes Nausea and vomiting: No Pain level: 1 Mental status: Baseline
== END 2024-10-24 13:31 | disposition home or self-care (01) ==
PROVIDERS: Anesthesiology; PCP Family Medicine; Visit Provider Obstetrics & Gynecology
PROC: (CPT 58661; principal; 2024-10-24 11:20)
DX: Z30.2 Encounter for sterilization (principal); F17.200 Nicotine dependence, unspecified, uncomplicated
CPT/HCPCS: 58661; 81025; 88302; J0131; J1100; J1171; J2250; J2405; J2704; J3010; J3490; J7030; J9999